=== PATIENT | male | born 1990 | race Caucasian/White ===

== ENCOUNTER 2018-07-25 00:04 | Emergency (ER) | payer MEDICAID, SELFPAY ==
[2018-07-25 00:07] VITALS: BP 162/81; PULSE 110; RESP 18; TEMP 38.1; O2SAT 97
--- NOTE | 2018-07-25 00:17 | DI.RPTCT_ITS ---
SYMPTOM/DIAGNOSIS: LEFT FOREARM SWELLING, CELLULITIS, R/O SUBCUTANEOUS GAS/ ABSCESS CT LEFT FOREARM : 07/25 CT examination of the forearm was obtained to evaluate for suspected abscess. There is a mildly heterogeneous fluid attenuation focus measuring about 8 x 4.5 x 2 cm in the medial aspect of the proximal forearm just deep to the fascia with appearance consistent with abscess. There is marked surrounding edema. Intramuscular component not excluded. No other focal abscess identified. CONCLUSION: Proximal forearm abscess as noted above. No underlying bony change seen.
[2018-07-25] MEDS: Normal Saline 1,000 ML 1000 ML IV (00:25)
[2018-07-25 00:28] LABS: Lactate-non-spesis 0.7 mmol/L (0.6-1.4)
[2018-07-25 00:35] LABS: Abs Immature Grans 0.01 k/cumm (0.0-0.09); Absolute Basophil Count 0.02 k/cumm (0.0-0.2); Absolute Eosinophil Count 0.07 k/cumm (0.0-0.7); Absolute Lymphocyte Count 1.57 k/cumm (1.2-3.4); Absolute Monocyte Count 1.02 k/cumm (0.11-0.7); Absolute Neutrophil Count 7.47 k/cumm (1.2-6.7); Basophils % 0.2; Eosinophils % 0.7; HCT 35.8 % (40.0-50.0); HGB 11.6 g/dL (13.5-17.5); Immature Grans % 0.1; Lymphocytes % 15.5; Mean Corp. HGB Concentration 32.4 g/dL (32.0-36.0); Mean Corpuscular Hemoglobin 26.8 pg (27.0-33.0); Mean Corpuscular Volume 82.7 fL (80-95); Mean Platelet Volume 10.5 fL (8.0-11.0); Neutrophils % 73.5; Platelet Count 254 x1000/uL (130-400); RBC 4.33 m/cumm (4.50-6.00); RBC Distribution Width 14.9 % (11.8-14.1); White Blood Cell Count 10.16 k/cumm (4.4-10.8)
[2018-07-25 00:39] LABS: Anion Gap 7.6 mmol/L (3-11); BUN 6 mg/dL (7-18); CO2 29.4 mmol/L (21.0-32.0); CREATININE 0.75 mg/dL (0.70-1.30); Calcium 8.8 mg/dL (8.5-10.1); Chloride 99 mmol/L (98-107); Glucose 88 mg/dL (70-100); Potassium 3.7 mmol/L (3.5-5.1); Sodium 136 mmol/L (136-145)
--- NOTE | 2018-07-25 01:10 | ED.GENADUL_ITS ---
Disposition Clinical Impression: Cellulitis of left forearm, History of intravenous drug abuse, Abscess of forearm, left Disposition: AGAINST MEDICAL ADVICE Condition: Fair Instructions: Cellulitis (ED), Abscess (ED) Additional Instructions: You are leaving AGAINST MEDICAL ADVICE. Understand the risks of leaving include loss of your upper extremity, or . You have an abscess in your arm today which would require admission and likely drainage in the operating room by an experienced specialist. Take the antibiotics until finished. Take Tylenol or Motrin as needed and directed for fever. You should receive a call from care management regarding follow-up with a primary care doctor for reevaluation within the next few days. Return immediately to the emergency department any worsening or new concerning symptoms. Prescriptions: Clindamycin [Cleocin] 450 mg PO TID 10 Days cap Medical Decision Making - Lab Data Laboratory Tests 07/25/18 07/25/18 07/25/18 00:22 00:22 00:22 WBC 10.16 RBC 4.33 L Hgb 11.6 L Hct 35.8 L MCV 82.7 MCH 26.8 L MCHC 32.4 RDW 14.9 H Plt Count 254 MPV 10.5 Immature Gran % 0.1 Neutrophils % 73.5 Lymphocytes % 15.5 Monocytes % 10.0 Eosinophils % 0.7 Basophils % 0.2 Absolute Neutrophils 7.47 H Absolute Lymphocytes 1.57 Absolute Monocytes 1.02 H Absolute Eosinophils 0.07 Absolute Basophils 0.02 Sodium 136 Potassium 3.7 Chloride 99 Carbon Dioxide 29.4 Anion Gap 7.6 BUN 6 L Creatinine 0.75 Estimated GFR/1.73 m2 >= 60.00 Glucose 88 Lactate 0.7 Calcium 8.8 - Radiology Data Radiology results: report reviewed, image reviewed CT left upper extremity: Soft tissue complex fluid collection consistent with abscess with a large amount of surrounding subcutaneous edema and skin thickening. Complex fluid collection is located just deep to the fascial medial compartment of the upper forearm and measures 8.3 x 4.4 x 2.1 cm. - Medical Decision Making 0020 -- 28-year-old male with history of IV drug use and skin popping in bilateral upper extremities who presents with left forearm erythema, edema and pain for the past 4 days. Last injection in left forearm 2 weeks ago per patient. Temp on arrival 100.6. Heart rate 110s. Blood pressure 162/91. Patient appears jittery and anxious but also drowsy consistent with likely recent heroin use just prior to arrival. He otherwise is awake and alert, airway intact and is answering questions appropriately. He denies known fever, chest pain or shortness of breath. Left forearm has significant edema and erythema as well as tightening of skin. Appears consistent with cellulitis. There is no crepitus or hemorrhagic skin findings and he is neurovascularly intact making necrotizing fasciitis and compartment syndrome less likely but this could be a concern. I explained to patient I am concerned about his significant infection in his left forearm I would recommend admission for IV antibiotics but he is refusing. The risks of and disability including losing his extremity as well as were explained and he fully understands and demonstrates capacity to make decisions. He is agreeable to stay for labs and imaging. Patient states he is only here for antibiotics and wants to leave after workup complete. We will place an IV, bolus IV fluids, labs, lactate, blood cultures and obtain CT of the upper extremity to rule out abscess or subcutaneous air. Will also give a dose of clindamycin IV. 0050 -- labs reviewed. White blood cell count 10. Lactate 0.7. Lab was unable to obtain second set of blood cultures after several attempts and patient is refusing any further attempt at blood culture. Will send to CT. 0015 -- patient is requesting to leave to smoke a cigarette. Explained to patient that he needs to stay in the ED as his antibiotic was just started and we are waiting for the CT results. He is now agreeable to stay. 0230 -- patient requested multiple times to leave but eventually stayed. His CT noted an abscess deep to the fascia medial aspect approximately 8 x 4 x 2 cm. There is no obvious superficial abscess noted and due to the complex neurovascular structures in this region, this is not appropriate for ED incision and drainage. It was again explained to patient that he should stay for IV antibiotics and likely surgical drainage in the OR but he is refusing. The risks of and disability were again explained and he fully understands and demonstrates capacity and was to likely. AMA form signed. Patient was given prescription for clindamycin. He declines dose for home. Will place patient on care management list to arrange for a follow-up appointment with a primary care doctor within the next few days. He was instructed to return immediately to the emergency department any worsening or new concerning symptoms. History of Present Illness - General Chief complaint: Cellulitis Stated complaint: UNKNOWN Time Seen by Provider: 07/25/18 00:16 Source: patient Mode of arrival: ambulatory Limitations: no limitations - History of Present Illness Initial comments: Patient is a 28-year-old male with history of IV drug abuse who presents with 4 days of left forearm erythema, edema and pain. He states the symptoms extend from his left elbow down to his left hand. Patient has a history of IV drug injection in his upper extremities, and states that he last injected in his left proximal forearm 2 weeks ago. He does also admit to possible bug bites in his extremities which he frequently picks . States he last used IV heroin tonight. He denies known fever. - Related Data Clindamycin [Cleocin] 450 mg PO TID 10 Days cap 07/25/18 Allergies Allergy/AdvReac Type Severity Reaction Status Date / Time No Known Allergies Allergy Unverified 07/25/18 00:26 Review of Systems Constitutional: denies: chills, fever Eyes: denies: eye pain ENT: denies: ear pain, dental pain Respiratory: denies: cough, shortness of breath Cardiovascular: denies: chest pain, dyspnea on exertion Gastrointestinal: denies: abdominal pain, nausea, vomiting Genitourinary: denies: urgency, dysuria, frequency Musculoskeletal: denies: back pain Skin: denies: rash, lesions Neurological: denies: headache, weakness, numbness Past Medical History - Past Medical History Narcotic drug abuse Surgical history: no surgical history - Social History Smoking status: current everyday smoker Alcohol use: occasionally Drug use: opiates, IVDA General Exam - General Limitations: no limitations General appearance: alert, in no apparent distress - Eye Eye exam: Present: EOMI - Respiratory Respiratory exam: Present: normal lung sounds bilaterally. Absent: respiratory distress, wheezes, rales, rhonchi, stridor - Cardiovascular Cardiovascular Exam: Present: regular rate, normal rhythm. Absent: bradycardia , tachycardia - GI/Abdominal GI/Abdominal exam: Present: soft, normal bowel sounds. Absent: distended, tenderness, guarding, rebound, rigid - Extremities Exam Extremities exam: Present: other (Significant edema, erythema and tightness of skin noted and left distal upper extremity extending from just below elbow down to left hand. The skin generally feels tight and somewhat indurated mainly in the proximal forearm. There is no obvious areas of fluctuance. There is no crepitus, bulla, or hemorrhagic findings. Cap refill less than 2 seconds. Left radial and ulnar pulses intact. He otherwise has full range of motion of the left upper extremity.) Course Vital Signs - 24 hr 07/25/18 00:07 Temperature 100.6 F H Pulse 110 H Respiratory 18 Rate Blood Pressure 162/81 Pulse Oximetry 97
[2018-07-25] MEDS: Ketorolac 30 MG/ML VIAL IVP (01:18)
[2018-07-25] MEDS: CLINDAMYCIN 900 MG/50 ML BAG 100 MG IVPB (01:18)
[2018-07-25] MEDS: Acetaminophen 500 MG TAB 1000 MG PO (01:18)
[2018-07-25] MEDS: Omnipaque 350 MG/ML 100 ML BTL IJ (01:34)
[2018-07-25 02:06] VITALS: PULSE 80; RESP 24; TEMP 36.6; O2SAT 96
--- NOTE | 2018-07-25 02:19 | NUR.NOTE ---
Nursing Note: Patient noted to be very jumpy and unable to sit still during assessment. Admits to using IV heroin and usually using his L forearm, which is where the wound is. Pt restless during stay in ER, refusing a second set of blood cultures and requesting to go outside to smoke. Policy explained to patient, especially where he has an IV in. Pt allowed antibiotic to complete. Patient decided to leave against medical advice as he was advised to stay for admission given the infection that has taken place in his arm.
--- NOTE | 2018-07-25 02:27 | DI.VRAD_ITS ---
EXAM: CT Left Upper Extremity With Intravenous Contrast, Forearm CLINICAL HISTORY: 28 years old, male; Signs and symptoms; Swelling; Arm, lower; Left; Patient HX: Left arm pain, swelling and redness h/o ivda TECHNIQUE: Axial computed tomography images of the left forearm with intravenous contrast. All CT scans at this facility use at least one of these dose optimization techniques: automated exposure control; mA and/or kV adjustment per patient size (includes targeted exams where dose is matched to clinical indication); or iterative reconstruction. Coronal and sagittal reformatted images were created and reviewed. CONTRAST: 100 mL of Omnipaque 350 administered intravenously. COMPARISON: No relevant prior studies available. FINDINGS: Bones/joints: Unremarkable. No acute fracture. No dislocation. Soft tissues: Subcutaneous edema and skin thickening. Complex fluid collection just deep to the fascia medial aspect of the upper forearm measures 8.3 x 4.4 x 2.1 cm. IMPRESSION: Soft tissue complex fluid collection consistent with abscess with a large amount of surrounding subcutaneous edema and skin thickening. Dictated and Authenticated by: Jacques Fang MD. Ordering:MERARI ANDERSEN MD
--- NOTE | 2018-07-25 09:07 | PDOC.ERCMPRO ---
Care Management Progress Note 07/25-Dr. 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 Patient left AMA. Referral faxed to [facility].
--- NOTE | 2018-07-25 09:10 | CMPROGNOTE_ITS ---
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 Patient left AMA. Referral faxed to [facility].
== END 2018-07-25 02:43 | disposition left against medical advice (07) ==
PROVIDERS: Emergency Provider Physician Assistant
DX: L02.413 Cutaneous abscess of right upper limb (principal); L03.113 Cellulitis of right upper limb; R60.0 Localized edema; F50.9 Eating disorder, unspecified; F11.188 Opioid abuse with other opioid-induced disorder; Z53.29 Procedure and treatment not carried out because of patient's decision for other reasons
CPT/HCPCS: 36415; 80048; 87040; 96361; 96374; 96375; 99285; 73201; 83605; 85025; J1885; J3490

== ENCOUNTER 2020-06-27 09:19 | Emergency (ER) | payer MEDICAID, SELFPAY ==
[2020-06-27 09:29] VITALS: BP 124/67; PULSE 85; RESP 16; TEMP 36.8; O2SAT 100
--- NOTE | 2020-06-27 09:55 | DI.RAD_ITS ---
EXAM: XR ANKLE RT COMPLETE CLINICAL HISTORY: Swelling and pain x5 days no trauma TECHNIQUE: 2D digital imaging was performed. COMPARISON: No exams were available for comparison FINDINGS: There is soft tissue swelling around the lateral malleolus. No fracture or ankle mortise widening is seen. The talar dome appears intact. IMPRESSION: Lateral soft tissue swelling.
--- NOTE | 2020-06-27 11:52 | ED.GENADUL_ITS ---
Discharge Plan Disposition Patient Disposition: HOME Condition: Stable Discharge Details Chief Complaint: Orthopedic Clinical Impression: Cellulitis of right ankle Primary Care Provider: Azul Gamez ED Provider: Yara Vang Home Meds and New Rx's Prescriptions: New cephalexin 500 mg tablet 500 mg PO QID Qty: 40 RF: 0 Continued trazodone 50 mg Tablet 50 mg PO QHS RF: 0 mirtazapine [Remeron] 30 mg Tablet 30 mg PO QHS RF: 0 buprenorphine-naloxone [Suboxone] 8-2 mg Film 2 film SUBLINGUAL DAILY RF: 0 Discharge Instructions Instructions: Cellulitis (ED) Additional Instructions: Elevate right lower extremity as much as possible above the level of your heart throughout the day Take ibuprofen 600 mg 4 times daily with food for 5 days then as needed for pain Take the antibiotics as prescribed. Follow-up with your primary care provider for reevaluation. Return sooner for new or worsening symptoms Referrals: Azul Gamez [Primary Care Provider] - Discharge Data Discharge Date/Time-TO BE ENTERED AT DEPARTURE: 06/27/20 12:26 Medical Decision Making Patient presents with nontraumatic right ankle swelling. There is no evidence of joint involvement as he has full range of motion with no pain. Differentials include cellulitis or gout. I did try to draw baseline labs but we were unable to obtain labs after multiple attempts. I did discuss his differentials with him and he is in agreement to try Keflex for cellulitis and ibuprofen for pain. He will follow-up sooner for new or worsening symptoms Medical Records Medical records reviewed: Yes I reviewed the patient's medical records. HPI General Date/Time Provider Initiated Documentation: 06/27/20 09:32 . Limitations to Documentation: no limitations . Information obtained by: patient . HPI Narrative: Patient presents with nontraumatic right ankle swelling and pain and redness. He has had no fevers. He has had his symptoms for 5 days. He has had no similar history. Related Data Home Medications Medication Instructions Recorded Confirmed buprenorphine-naloxone [Suboxone] 2 film SUBLINGUAL DAILY 06/27/20 06/27/20 cephalexin 500 mg PO QID #40 tab 06/27/20 mirtazapine [Remeron] 30 mg PO QHS 06/27/20 06/27/20 trazodone 50 mg PO QHS 06/27/20 06/27/20 Previous Rx's Medication Instructions Recorded cephalexin 500 mg PO QID #40 tab 06/27/20 Allergies Allergy/AdvReac Type Severity Reaction Status Date / Time No Known Allergies Allergy Unverified 06/27/20 09:32 General Stated Complaint: Orthopedic TALA: 4 Review of Systems Constitutional Constitutional: Denies fever(s) Cardiovascular Cardiovascular: Denies chest pain, Denies leg edema and Denies dyspnea Respiratory Respiratory: Denies dyspnea Musculoskeletal Musculoskeletal: Reports arthralgias, Reports joint swelling and Denies limited range of motion Integumentary/Breasts Skin/Breast: Denies lesions, Reports rash (Mild erythema to lateral right malleolus, ) and Denies sores PFSH Social History Do you feel safe in your relationship?: Yes Exam Const General: cooperative, healthy appearing, comfortable and no acute distress Nutritional Appearance: overweight Orientation: alert and oriented x3 HENMT Head: normal to inspection, normocephalic and atraumatic Cardio Rate: regular rate Rhythm: regular rhythm and other (Strong pedal pulse) Skin General skin exam: no ecchymosis and erythema Lesions: no lesions Rashes: rashes noted (Mild erythema to lateral malleolus) Trauma: no abrasions Wounds: wounds noted (Small scratches to lateral ankle, no overt erythema, scabs intact) Extrem General: no calf tenderness and edema Laterality: right (Ankle, he has full range of motion with no pain ) Course Vital Signs Vital signs: Vital Signs Temperature 36.8 C 06/27/20 09:29 Pulse 85 06/27/20 09:29 Respiratory Rate 16 06/27/20 09:29 Blood Pressure 124/67 06/27/20 09:29 Pulse Oximetry 100 06/27/20 09:29 Temperature 36.8 C 06/27/20 09:29 Temperature Source Skin 06/27/20 09:29 Pulse 85 06/27/20 09:29 Respiratory Rate 16 06/27/20 09:29 Respiratory Effort Non-Labored 06/27/20 10:11 Blood Pressure 124/67 06/27/20 09:29 Blood Pressure Position Sitting 06/27/20 09:29 Pulse Oximetry 100 06/27/20 09:29 Oxygen Delivery Method Room Air 06/27/20 09:29 Oxygen Flow Rate 0 06/27/20 09:29 Pain Level 3 06/27/20 09:29 Lab/Test Results Lab/Test Results: Laboratory Tests Range/Units 06/27/20 10:45 Sodium Cancelled Potassium Cancelled Chloride Cancelled Carbon Dioxide Cancelled Anion Gap Cancelled BUN Cancelled Creatinine Cancelled Estimated GFR/1.73 m2 Cancelled Glucose Cancelled Calcium Cancelled
== END 2020-06-27 12:26 | disposition home or self-care (01) ==
PROVIDERS: Emergency Provider Nurse Practitioner Acute Care; PCP Nurse Practitioner
DX: L03.115 Cellulitis of right lower limb (principal)
CPT/HCPCS: 36415; 80048; 85652; 99283; 73610; 84550; 85025; 86140